=== PATIENT | male | born 1955 | race Caucasian/White ===

== ENCOUNTER 2025-04-17 07:55 | Outpatient (CLI) | payer MEDICARE, OTHER, SELFPAY ==
--- OUTSIDE RECORDS SUMMARY | 2025-03-21 09:00 | XMS_ITS ---
Author Organization [facility] Address [address] [place], [place] [address] Care Team Providers Care Aircraft Engine Mechanic Name Role Phone TERENCE MÁRQUEZ Unavailable [phone] Mallorie Douglas Unavailable Unavailable Allergies No Known Allergies REASON FOR VISIT *Diabetic foot exam, wart, callus Social History Tobacco Use: Social History Observation Description Date Details (start date - stop date) Never Smoker NA - NA Tobacco Control (Standard) Question Answer Notes Tobacco use: Nonsmoker Vital Signs Height 71 in 03/21/2025 Weight 238 lbs 03/21/2025 BMI 33.19 kg/m2 03/21/2025 Height-cm 180.34 cm 03/21/2025 Weight-kg 107.96 kg 03/21/2025 Encounters Encounter Location Date Provider Diagnosis [facility] [address] [place], [place] [id number] 03/21/2025 TERENCE MÁRQUEZ Tinea unguium B35.1 ; [...] area and expose the foreign body. A moss picker was then used to remove it [...] area and expose the foreign body. A moss picker was then used to remove it [...] multiple treatments. Next Appt Details Provider Name:TERENCE CAST SMITA, 06/13/2025 08:20:00 AM, [address], [address], [phone], Progress Notes * Robbie HAMMDOB: [birth year] (70 yo M)Acc No.[id number]:03/21/2025 Progress Notes Patient: Naomie BANKS Robbie Hilton Provider: Lavern MÁRQUEZ :1955 A ge:70 Y S ex:Male Date:03/21/2025 Address:[facility] [address] [facility] Subjective: * Chief Complaints: * 1 . *Diabetic foot exam, wart, callus. * HPI: H PI: New Complaint P [...] warts, calluses and corns. * Medical History: L eg/Feet cramps, Arthritis, Sleep apnea, Back Trouble, Diabetic. * Surgical History: G all Bladder 2009, sinus surgery 2024. * Hospitalization/Major Diagno stic Procedure: D enies Past Hospitalization. * Family History: N o Family History documented.. * Social History: T obacco Use: T obacco Control (Standard) T obacco use: N onsmoker. D rugs/Alcohol: D o you drink alcohol?: Yes, Socially. * Medications: N one * Allergies: N .K.D.A. Objective: * Vitals: S hoe Size: 10, [...] foreign body, left foot, initial encounter - S95.585W (Primary) ?2. T inea unguium - B35.1 [...] that verruca treatments often require multiple treatments. * Billing Information: * Visit Code: 27551 Office Visit, New Pt., Level 3. * Procedure Codes: * Electronic signature of JS IVANAWilliam MÁRQUEZ , DPM on 04/17/2025 at 08:03 AM CDT Sign off status: Pending * Provider: Lavern MÁRQUEZ Date: 0 03/21/2025 Generated for Paulie pang/Viraj/Brendon on: 1 08:03 AM CDT History and Physical Notes * HPI (History [...]
--- OUTSIDE RECORDS SUMMARY | 2025-03-21 09:00 | XMS_ITS ---
Author Organization [facility] Address [address] [place], [place] [address] Care Team Providers Care Manuscript Reader Name Role Phone TERENCE MÁRQUEZ Unavailable [phone] Mallorie Douglas Unavailable Unavailable Allergies No Known [...] Location Date Provider Diagnosis [facility] [place] [address] [place], [place] [id number] 03/21/2025 TERENCE MÁRQUEZ Tinea unguium B35.1 ; [...] area and expose the foreign body. A grape picker was then used to remove it [...] area and expose the foreign body. A grape picker was then used to remove it [...] Appt Details Provider Name:TERENCE Dill SERENE ORDOÑEZ, 04/11/2025 09:30:00 AM, [address], [address], [id number], Progress Notes * Robbie HAMMDOB: [birth year] (70 yo M)Acc No.[id number]:03/21/2025 Progress Notes Patient: Naomie BANKSRobbie Provider: Lavern MÁRQUEZ :1955 A ge:70 Y S ex:Male Date:03/21/2025 Address[address], [facility] Subjective: * Chief Complaints: * [...] foreign body, left foot, initial encounter - S92.206Q (Primary) ?2. T inea unguium - B35.1 [...] treatments. * Billing Information: * Visit Code: 87304 Office Visit, New Pt., Level 3. * Procedure Codes: * Electronic signature of JS MÁRQUEZ , DPM on 04/09/2025 at 07:52 AM CDT Sign off status: Pending * Provider: Lavern MÁRQUEZ Date: 03/21/2025 Generated for Paulie pang/Viraj/Brendon on: 0 04/09/2025 07:52 AM CDT History and Physical Notes * [...]
--- OUTSIDE RECORDS SUMMARY | 2025-04-09 07:52 | XMS_ITS | Patient Health Record ---
Author Organization [facility] Address [address] [place], [place] [address] Care Team Providers Care Painter Structural Steel Name Role Phone TERENCE MÁRQUEZ Unavailable [phone] Mallorie Douglas Unavailable Unavailable Allergies No Known Allergies Reason For Referral No Information Social History Tobacco Use: Social History Observation Description Date Details (start date - stop date) Never Smoker NA - NA Tobacco Control (Standard) Question Answer Notes Tobacco use: Nonsmoker Vital Signs Height-cm 180.34 cm 03/21/2025 Weight-kg 107.96 kg 03/21/2025 Height 71 in 03/21/2025 Weight 238 lbs 03/21/2025 BMI 33.19 kg/m2 03/21/2025 Encounters Encounter Location Date Provider Diagnosis [facility] [place] [address] [place], [place] [phone] 03/21/2025 TERENCE MÁRQUEZ Tinea unguium B35.1 ; [...] area and expose the foreign body. A milk pickup driver was then used to remove it from [...] often require multiple treatments. Plan Of Treatment Next Appt Details Provider Name:TERENCE CAST SMITA, 04/11/2025 09:30:00 AM, [address], [facility] [address], [place], [place], [phone], Insurance Providers Payer Name Payer Address Payer Phone Subscriber Number Group Number Insured Name Patient Relationship to Insured Coverage Start Date Coverage End Date Medicare Part B [facility] [address] [place] [address] [id number] Robbie Medina Self - patient is the insured [employer] [address] [place], [place] [id number] Robbie Medina Self - patient is the insured 1 Medical (General) History Medical History History ICD Code Leg/Feet cramps Arthritis Sleep apnea Back Trouble Diabetic Surgical History Surgery Date(Month/Year) Gall Bladder 2009 sinus surgery 2024
--- OUTSIDE RECORDS SUMMARY | 2025-04-09 07:52 | XMS_ITS | Clinical Summary ---
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 Gender Identity Not on file Sexual Orientation Not on file Plan of Treatment Health Maintenance Due Date Last Done Comments Hepatitis C Virus (HCV) Screening 1955 TdaP Immunization 1955 Cologuard 01/20/2000 Colonoscopy 01/20/2000 Colorectal Cancer Screening 01/20/2000 Immunochemical Fecal Occult Blood 01/20/2000 Zoster Immunization (1 of 2) 2005 SARS-COV-2 Immunization ( season) 2024 11/05/2020, 10/08/2020 Influenza Immunization (#1) 03/12/202505/12, 04/06/2018, 05/17/2017, Additional history exists Respiratory Syncytial Virus (RSV) Immunization (Adult) (1 - 1-dose 75+ series) 2030 DTaP/Tdap/Td Immunization Discontinued 02/22/2020 Pneumococcal Immunization (50+ years) Completed 05/29/2021, 02/22/2020 Hepatitis B Immunization Aged Out No longer eligible based on patient's age to complete this topic Human Papillomavirus (HPV) Immunization Aged Out No longer eligible based on patient's age to complete this topic Meningococcal Immunization (ACWY) Aged Out No longer eligible based on patient's age to complete this topic Rotavirus Immunization Aged Out No lo nger eligible based on patient's age to complete this topic
--- OUTSIDE RECORDS SUMMARY | 2025-04-11 04:30 | XMS_ITS ---
Author Organization [facility] Address [address] [place], [place] [phone] Care Team Providers Care Casing Operator Name Role Phone TERENCE MÁRQUEZ Unavailable [phone] Mallorie Douglas Unavailable Unavailable Allergies No Known Allergies REASON FOR VISIT foot check Vital Signs Height 71 in 04/11/2025 Height-cm 180.34 cm 04/11/2025 Encounters Encounter Location Date Provider Diagnosis [facility] [place] [address] [place], [place] [id number] 04/11/2025 TERENCE MÁRQUEZ Tinea unguium B35.1 ; [...] Reas on: Provider Name:TERENCE Fuentes ORDOÑEZ, 06/13/2025 08:20:00 AM, [address], [address], [phone], Progress Notes * Robbie HAMMDOB: [birth year] (70 yo M)Acc No.[id number]:04/11/2025 Patient: Robbie RHODES Provider: Lavern MÁRQUEZ :1955 A ge:70 Y S ex:Male Date:04/11/2025 [facility] Subjective: * Chief Complaints: * 1 . Foot check. * HPI: H PI: Follow Up Visit [...] all Bladder 2009, sinus surgery 2024. * Family History: N o Family History documented.. * Medications: N one * Allergies: N .K.D.A. Objective: * Vitals: H t: 71 in, [...] past year. * Follow Up: 9 weeks DF * Billing Information: * Visit Code: * Procedure Codes: * Electronic signature of JS MÁRQUEZ DPM on 04/17/2025 at 08:04 AM CDT Sign off status: Pending * Provider: Lavern MÁRQUEZ Date: Generated for Paulie pang/Viraj/Brendon on: 08:04 AM CDT History and Physical Notes * [...]
--- OUTSIDE RECORDS SUMMARY | 2025-04-17 08:03 | XMS_ITS | Encounter Summary ---
Author Organization [facility] System Address [facility] [place] [address] Care Team Providers Care Irish Moss Bleacher Name Role Phone Mallorie Douglas Manjula PERRY Primary Care Provider [phone] Kimberly Butcher MD Unavailable [phone] Pavithra Riggs MICROARRAY ANALYST Unavailable [phone] Narayan Julien DPM Unavailable Encounter Details Date Type Department Care Team (Late st Contact Info) Description 04/29/2023 Application Experts Message Enc [facility] [place], [place] [phone] [facility] Provider request for medical records Social History Tobacco Use Types Packs/Day Years Used Date Smoking Tobacco: Never Passive Smoke Exposure: Never Smokeless Tobacco: Never Alcohol Use Standard Drinks/Week Comments Never 0 (1 standard drink = 0.6 oz pur e alcohol) PHQ-2 Answer Date Recorded Patient Health Questionnaire-2 Score 0 07/15/2022 Education Answer Date Recorded What is the highest level of school you have completed or the highest degree you have received? 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 [address] [place], [place] [phone] documented as of this encounter Visit Diagnoses Not on filedocumented in this encounter Additional Health Concerns Infection Onset Date Last Indicated Resolved Time COVID-19 Rule Out 02/25/2024 02/25/2024 02/25/2024 10:33 AM CDT Assessment Noted Time PHQ-9 Depression Total Score: 0 12/13/19 21 4:06 PM CDT documented as of this encounter Care Teams Irish Moss Bleacher Relationship Specialty Start Date End Date Mallorie Douglas DO [address] [place], [place] [address] PCP - General FAMILY PRACTICE 05/31/17 Kimberly Butcher MD Three [facility]. [address] [place] [address] [place] Saloon Keeper CARDIOVASCULAR DISEASE 07/20/17 Pavithra Riggs NP 3 [facility] [address] [place] [phone] (Work) Nurse Practitioner PAIN MANAGEMENT 11/16/22 Narayan Julien DPM 3 [facility] [address] [place] [address] Referring Physician PODIATRY 11/30/23 [facility] [address] [place] [address] 11/30/23 documented as of this encounter
--- OUTSIDE RECORDS SUMMARY | 2025-04-17 08:03 | XMS_ITS | Encounter Summary ---
Author Organization [facility] System Address [facility] [place] [address] Care Team Providers Care Shuttle Hand Name Role Phone Mallorie Douglas Primary Care Provider Kimberly Butcher MD Unavailable [phone] Pavithra Riggs CLINICAL PRACTICE CONSULTANT Unavailable [phone] Narayan Julien DPM Unavailable Encounter Details Date Type Department Care Team (Late st Contact Info) Description 05/18/2023 Therapy Plan [facility] Physical Therapy [address] [place] [address] Ashley Srinivasan, PT [address] [place], [place] [phone] Social History Tobacco Use Types Packs/Day Years [...] Sex Assigned at Male 08/31/2024 1:17 PM PULPWOOD DEALER Legal Sex Male 5:06 PM CDT Gender Identity Male 08/31/2024 1:17 PM PULPWOOD DEALER Sexual Orientation Straight 08/31/2024 1: 17 PM PULPWOOD DEALER Occupation Industry Job Start Date Job End [...] Description 12/24/2025 12:00 PM CDT Office Visit [facility] THREE [facility], [address] [place], [place] [phone] Kimberly Butcher MD Three [facility]. [address] [place], [place] [phone] documented as of this encounter Visit Diagnoses Not on filedocumented in this encounter Additional Health Concerns Infection Onset Date Last Indicated Resolved Time COVID-19 Rule Out 02/25/2024 02/25/2024 02/25/2024 10:33 AM CDT Assessment Noted Time PHQ-9 Depression Total Score: 0 12/13/19 21 4:06 PM CDT documented as of this encounter Care Teams Shuttle Hand Relationship Specialty Start Date End Date Mallorie Douglas DO [address] [place], [place] [phone] PCP - General FAMILY PRACTICE 05/31/17 Kimberly Butcher MD Three [facility]. [address] [place], [place] [phone] [place] Lorry Weigher CARDIOVASCULAR DISEASE 07/20/17 Pavithra Riggs NP 3 [facility] [address] [place], [place] [phone] (Work) Nurse Practitioner PAIN MANAGEMENT 11/16/22 Narayan Julien DPM 3 [facility] [address] [place] [phone] Referring Physician PODIATRY 11/30/23 [facility] [address] [place] [address] 11/30/23 documented as of this encounter
--- OUTSIDE RECORDS SUMMARY | 2025-04-17 08:03 | XMS_ITS | Encounter Summary ---
Author Organization [facility] Address [address] [place] [address] Care Team Providers Care Carpet Winder Name Role Phone Mallorie Douglas Manjula PERRY Primary Care Provider [phone] Kimberly Butcher MD Unavailable [phone] Pavithra Riggs MANAGER MAC Unavailable [phone] Narayan Julien DPM Unavailable Encounter Details Date Type Department Care Team (Late st Contact Info) Description 08/06/2022 Abstract [facility] BUSINESS OFFICE [facility] [place] [address] Abstract, Doc Med Group Social History Tobacco Use Types Packs/Day Years Used Date Smoking Tobacco: Never Smokeless Tobacco: Never Alcohol Use Standard Drinks/Week Comments No 0 (1 standard drink = 0.6 oz pur e alcohol) PHQ-2 Answer Date Recorded Patient Health Questionnaire-2 Score 0 07/15/2022 Sex and Gender Information Value Date Recorded Sex Assigned at Male 08/31/2024 1:17 PM AUTO BODY ESTIMATOR Legal Sex Male 5:06 PM CDT Gender Identity Male 08/31/2024 1:17 PM AUTO BODY ESTIMATOR Sexual Orientation Straight 08/31/2024 1: 17 PM AUTO BODY ESTIMATOR 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 No / Unsure 07/15/2022 10:47 AM AUTO BODY ESTIMATOR documented as of this encounter Plan of Treatment Upcoming Encounters Date Type Department Care Team (Late st Contact Info) Description 12/24/2025 12:00 PM CDT Office Visit [facility] THREE [facility], [address] [place], [place] [phone] Kimberly Butcher MD [facility]. [facility] [address] [place], [place] [phone] documented as of this encounter Procedures Procedure Name Priority Date/Time Associated Diagnosis Comments GFR Routine 02/25/2022 documented in this encounter Results * GFR (02/25/2022) GFR ESTIMATE 94.6 02/25/2022 us [facility] Abstract LABORATORY Final Res ult documented in this encounter Visit Diagnoses Not on filedocumented in this encounter Additional Health Concerns Infection Onset Date Last Indicated Resolved Time COVID-19 Rule Out 02/25/2024 02/25/2024 02/25/2024 10:33 AM CDT Assessment Noted Time PHQ-9 Depression Total Score: 0 12/13/19 21 4:06 PM CDT documented as of this encounter Care Teams Carpet Winder Relationship Specialty Start Date End Date Mallorie Douglas DO [address] [place], [place] [phone] PCP - General FAMILY PRACTICE 05/31/17 Kimberly Butcher MD Three [facility]. [facility] [address] [place], [place] [phone] Coila Volleyball Player CARDIOVASCULAR DISEASE 07/20/17 Pavithra Riggs NP 3 [facility] [address] [place] [phone] (Work) Nurse Practitioner PAIN MANAGEMENT 11/16/22 Narayan Julien DPM 3 [facility] [address] [place] [address] Referring Physician PODIATRY 11/30/23 [facility] [address] [place] [address] 11/30/23 documented as of this encounter
--- OUTSIDE RECORDS SUMMARY | 2025-04-17 08:03 | XMS_ITS | Clinical Summary ---
Author Organization [facility] Care Team Providers Care Communication Skills Instructor Name Role Phone Unavailable Primary Care Provider Unavailabl e Social History Tobacco Use Types Packs/Day Years Used Date Smoking Tobacco: Never Assessed Sex and Gender Information Value Date Recorded Sex Assigned at Not on file Legal Sex Male 10:13 AM SALON PROFESSIONAL Gender Identity Not on file Sexual Orientation Not on file Plan of Treatment Health Maintenance Due Date Last Done Comments Hepatitis C Virus (HCV) Screening 1955 TdaP Immunization 1955 Cologuard 01/20/2000 Colonoscopy 01/20/2000 Colorectal Cancer Screening 01/20/2000 Immunochemical Fecal Occult Blood 01/20/2000 Zoster Immunization (1 of 2) 2005 Influenza Immunization (#1) 03/12/202505/12, 04/06/2018, 05/17/2017, Additional history exists SARS-COV-2 Immunization ( - 2024- season) 2025 11/05/2020, 10/08/2020 Respiratory Syncytial Virus (RSV) Immunization (Adult) (1 [...]
--- OUTSIDE RECORDS SUMMARY | 2025-04-17 08:03 | XMS_ITS | Encounter Summary ---
Author Organization [facility] System Address [facility] [place] [address] Care Team Providers Care Utility Tech Name Role Phone Mallorie Douglas Primary Care Provider [phone] Kimberly Butcher MD Unavailable [phone] Pavithra Riggs NP Unavailable [phone] Narayan Julien DPM Unavailable Reason for Visit * Reason Onset Date Comments Called To Cancel Office Appt. 10/23/2020 Encounter Details Date Type Department Care Team (Late st Contact Info) Description 10/23/2020 Telephone [facility] Physical Therapy [address] [place] [address] Emma Martinez PT Called To Cancel Office Appt. 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 No / Unsure 10/11/2020 3:03 PM CDT documented as of this encounter Plan of Treatment Upcoming Encounters Date Type Department Care Team (Late st Contact Info) Description 12/24/2025 12:00 PM CDT Office Visit [facility] THREE [facility], [address] [place], [place] [phone] Kimberly Butcher MD Three [facility]. [address] [place], [place] [address] documented as of this encounter Visit Diagnoses Not on filedocumented in this encounter Additional Health Concerns Infection Onset Date Last Indicated Resolved Time COVID-19 Rule Out 02/25/2024 02/25/2024 02/25/2024 10:33 AM CDT documented as of this encounter Care Teams Utility Tech Relationship Specialty Start Date End Date Mallorie Douglas DO [address] [place], [place] [address] PCP - General FAMILY PRACTICE 05/31/17 Kimberly Butcher MD Three [facility]. [address] [place] [address] [place] Cannon Fire Direction Specialist CARDIOVASCULAR DISEASE 07/20/17 Pavithra Riggs NP 3 [facility] [address] [place] [phone] (Work) Nurse Practitioner PAIN MANAGEMENT 11/16/22 Narayan Julien DPM 3 [facility] [address] [place] [address] Referring Physician PODIATRY 11/30/23 [facility] [address] [place] [address] 11/30/23 documented as of this encounter
--- OUTSIDE RECORDS SUMMARY | 2025-04-17 08:03 | XMS_ITS | Encounter Summary ---
Author Organization [facility] System Address [facility] [place] [address] Care Team Providers Care Cathode Ray Tube Assembler Name Role Phone Malloire Douglas Primary Care Provider [phone] Kimberly Butcher MD Unavailable [phone] Pavithra Riggs CARDIAC MONITOR TECHNICIAN Unavailable [phone] Narayan Julien DPM Unavailable Encounter Details Date Type Department Care Team (Latest Contact Info) Description 03/10/2018 Abstract [facility] Medical [facility] , Valdo Mcnally MD Social History Tobacco Use Types Packs/Day Years Used Date Smoking Tobacco: Never Smokeless Tobacco: Never Alcohol Use Standard Drinks/Week Comments No 0 (1 standard drink = 0.6 oz pur e alcohol) Sex and Gender Information Value Date Recorded Sex Assigned at Male 08/31/2024 1:17 PM HOUSEHOLD APPLIANCE MECHANIC Legal Sex Male 5:06 PM CDT Gender Identity Male 08/31/2024 1:17 PM HOUSEHOLD APPLIANCE MECHANIC Sexual Orientation Straight 08/31/2024 1: 17 PM HOUSEHOLD APPLIANCE MECHANIC 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 [address] [place] [address] documented as of this encounter Visit Diagnoses Not on filedocumented in this encounter Additional Health Concerns Infection Onset Date Last Indicated Resolved Time COVID-19 Rule Out 02/25/2024 02/25/2024 02/25/2024 10:33 AM CDT documented as of this encounter Care Teams Cathode Ray Tube Assembler Relationship Specialty Start Date End Date Mallorie Douglas DO [address] [place] [address] PCP - General FAMILY PRACTICE 05/31/17 Kimberly Butcher MD Three [facility]. [facility] [address] [place] [address] [place] Business Support Liaison CARDIOVASCULAR DISEASE 07/20/17 Pavithra Riggs NP 3 [facility] [address] [place] [phone] (Work) Nurse Practitioner PAIN MANAGEMENT 11/16/22 Narayan Julien DPM 3 [facility] [address] [place] [address] Referring Physician PODIATRY 11/30/23 [facility] [address] [place] [address] 11/30/23 documented as of this encounter
--- OUTSIDE RECORDS SUMMARY | 2025-04-17 08:04 | XMS_ITS | Clinical Summary ---
Author Organization [facility] Address [address] [place] [address] Care Team Providers Care Baby Sitter Name Role Phone Mallorie Douglas Primary Care Provider [phone] Kimberly Butcher MD Unavailable [phone] Pavithra Riggs WINDER TENDER Unavailable [phone] Narayan Julien DPM Unavailable Allergies No known active allergies Medications Cholecalciferol (VITAMIN D-3) 5000 units Tab Take 1 tablet (125 mcg total) by mouth daily. Active SUMAtriptan (IMITREX) 20 MG/ACT nasal spray 20 mg by Nasal route as needed. Active vitamin B-12 (CYANOCOBALAMIN) 1000 mcg tablet Take 1 tablet (1,000 mcg total) by mouth daily. Take one by mouth daily 0 Active diclofenac sodium (VOLTAREN) 1 % gel Apply 4 g topically 4 (four) times daily. 3 Active lidocaine (LIDODERM) 5 % Place 1 patch onto the skin. 3 Active metFORMIN (GLUCOPHAGE) 500 MG tabletIndication s:Type 2 diabetes mellitus without complication, without long-term current use of insulin ([facility]) Take 1 tablet (500 mg total) by mouth daily. 180 tablet 4 Active Glucose Blood (ACCU-CHEK ELIO PLUS) test stripIndications :Type 2 diabetes mellitus without complication, without long-term current use of insulin ([facility]) USE TO TEST TWICE DAILY 200 strip 3 4 Active atorvastatin (LIPITOR) 10 MG tabletIndication s:Type 2 diabetes mellitus without complication, without long-term current use of insulin ([facility]) TAKE 1 TABLET(10 MG) BY MOUTH EVERY NIGHT AT BEDTIME 90 tablet 1 4 Active hydroCHLOROthiaz margarita (MICROZIDE) 12.5 MG tabletIndication s:Essential hypertension TAKE 1 TABLET(12.5 MG) BY MOUTH EVERY MORNING 90 tablet 2 5 Active naloxone (NARCAN) 4 MG/0.1ML nasal sprayIndications :Acute bilateral thoracic back pain 1 spray by Nasal route as needed for Opioid reversal. may repeat every 2 to 3 minutes in alternating nostrils until medical assistance becomes available 1 each 5 026 Active fluticasone propionate (FLONASE) 50 MCG/ACT nasal sprayIndications :Non-seasonal allergic rhinitis due to pollen SHAKE LIQUID AND USE 1 SPRAY IN EACH NOSTRIL DAILY 16 g 3 5 Active lisinopril (PRINIVIL) 2.5 MG tabletIndication s:Essential hypertension Take 1 tablet (2.5 mg total) by mouth daily. 90 tablet 3 5 Active SOFTCLIX LANCETS MiscIndications: Type 2 diabetes mellitus without complication, without long-term current use of insulin ([facility]) USE TO CHECK BLOOD SUGAR TWICE DAILY 200 each 2 5 Active semaglutide (OZEMPIC) 1 mg/dose injection (PEN)Indications :Diabetes Mellitus Inject 1 mg into the skin once a week. Indications: Diabetes 9 mL 3 5 Active ipratropium (ATROVENT) 0.06 % nasal sprayIndications :Rhinorrhea USE 2 SPRAYS IN EACH NOSTRIL FOUR TIMES DAILY 15 mL 1 5 Active Blood Glucose Monitoring Suppl (FREESTYLE LITE) DeviceIndication s:Type 2 diabetes mellitus with hypoglycemia without coma, without long-term current use of insulin ([facility]) Check sugars daily and hypoglycemia 1 each 1 5 Active Active Problems Problem Noted Date Diagnosed Date Type 2 diabetes mellitus wit h other specified complication, without long-term current use of insulin ([facility]) 01/25/2025 Dyslipidemia 09/04/2020 Localized edema 09/04/2020 Essential hypertension 09/04/2020 Sebaceous cyst of right axilla 05/10/2018 Cerumen debris on tympanic membrane 01/03/2018 LEIDY on CPAP 12/02/2017 Abnormal ECG 07/28/2017 Precordial pain 07/28/2017 Thoracic spine pain 06/07/2017 T12 vertebral fracture ([facility]) 017 Environmental and seasonal allergies 11/19/2016 Migraine 10/05/2016 Low back pain 03/13/2015 Urinary incontinence 11/30/2013 Vitiligo 11/23/2013 Atypical chest pain PVC (premature ventricular contraction) Class 2 obesity due to exces s calories with body mass index (BMI) of 36.0 to 36.9 in adult Type 2 diabetes mellitus wit h hypoglycemia without coma, without long-term current use of insulin ([facility]) Resolved Problems Problem Noted Date Diagnosed Date Resolved Date Achilles tendinitis 01/03/2018 05/04/20 23 Encounters Date Type Department Care Team Description 03/28/2025 Scan HEALTH INFO SRVCS Scanned, Doc Med Group 03/06/2025 3:40 PM CDT Office Visit [facility] [address], [address] [place] [phone] Mallorie Douglas DO Follow Up (Pt is f/u on a wart) 03/06/2025 Travel 03/01/2025 Scan HEALTH INFO SRVCS Scanned, Doc Med Group 02/19/2025 Scan HEALTH INFO SRVCS Scanned, Doc Med Group Lab (SCAN) 02/12/2025 Therapy Plan [facility] Physical Therapy [address] [facility] [address] [place] [address] Ashley Srinivasan, PT 02/05/2025 Telephone [facility] [address], [address] [place] [address] Mallorie Douglas DO Refill Request 01/25/2025 10:40 AM CDT Office Visit [facility] [place] [address], [address] [place] [address] Mallorie Douglas DO Wart (Pt has a wart on the bottom of his foot) 01/25/2025 Travel from Last 3 Months Immunizations Immunization Administration Dates Next Due Fluzone 6 Months+ Quad (0.5 mL Prefilled Syringe) 03/24/2022,05/29/2021 Fluzone High Dose - >Age 65 (Prefilled Syringe) 03/23/2023 Influenza (FluMist) 04/02/2011 Influenza (Generic) 04/16/2014, 0,05/03/2009,2000 Influenza Adult (Generic) 04/06/2018,12/2016,04/14/2016,2014 MMR (Generic) 07/20/1998 MODERNA COVID-19 (12+) MRNA, LNP-S, PF, 100 MCG/ 0.5 ML DOSE 11/05/2020,10/08/2020 Pneumococcal (Pneumovax 23) 05/29/2021 Pneumococcal (Prevnar 13) 02/22/2020,03/08/2017 Polio Opv (Generic) 09/22/1979 Td (Decavac) 02/22/2020 Tdap (Generic) 03/08/2017,07/22/2009 Typhoid 09/16/1999 Yellow Fever Vaccine 10/26/1992 Zoster (Zostavax) [address]67 Unt/0.65Ml 04/14/2016 Family History Medical History Relation Comments Cancer Mother Complications du e to MRSA leukemia Mother Stroke Paternal Grandfather Stroke Paternal Grandmother Relation Status Comments Father 70's Maternal Grandfather Maternal Grandmother Mother (Age 53) A TRAY SERVICE WORKER Paternal Grandfather (Age 63) Paternal Grandmother (Age 70) Sister Alive Social History Tobacco Use Types Packs/Day Years Used Date Smoking Tobacco: Never Passive Smoke Exposure: Never Smokeless Tobacco: Never Tobacco Cessation:Counseling Given: No Alcohol Use Standard Drinks/Week Comments Never 0 (1 standard drink = 0.6 oz pur e alcohol) AUDIT-C Answer Date Recorded Q1: How often do you have a drink containing alcohol? Never 11/27/2023 Q2: How many drinks containi ng alcohol do you have on a typical day when you are drinking? Patient does not drink Q3: How often do you have si x or more drinks on one occasion? Never 11/27/2023 PHQ-2 Answer Date Recorded Patient Health Questionnaire-2 Score 0 08/31/2024 Education Answer Date Recorded What is the highest level of school you have completed or the highest degree you have received? 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 [employer] Not on file Not on william e Not on file Last Filed Vital Signs Vital Sign Reading Time Taken Comments Blood Pressure 126/82 03/06/2025 3:23 PM CDT Pulse 77 03/06/2025 3:23 PM CDT Temperature 36.8 C (98.2 F) 03/06/2025 3:23 PM CDT Respiratory Rate 18 03/06/2025 3:23 PM CDT Oxygen Saturation 97% 03/06/2025 3:23 PM CDT Inhaled Oxygen Concentration - - Weight 111.1 kg (245 lb) 03/06/2025 3:23 PM CDT Height 180.3 cm (5' 11) 12/18/2024 9:17 AM CDT Body Mass Index 34.17 12/18/2024 9:17 AM CDT Plan of Treatment Upcoming Encounters Date Type Department Care Team (Late st Contact Info) Description 12/24/2025 12:00 PM CDT [facility] Visit [facility] [address] [place] [address] Kimberly Butcher MD Three [facility]. [address]HI [address] [place] [address] Health Maintenance Due Date Last Done Comments Kidney Health Evaluation 1955 Zoster Vaccines (2 of 3) 06/09/2016 04/14/2016 Hemoglobin A1C 08/11/2024 02/09/2024, 02/09, 02/26/2023, Additional history exists Diabetes: Retinopathy Eye Exam 09/14/2024 09/14/2022, 11/19/2021, 03/24/2018 Annual Medicare Wellness Visit 11/30/2024 11/30/2023 Lipid Panel 02/08/2025 02/09/2024, 02/09, 02/25/2022, Additional history exists COVID-19 Vaccine ( season) 2025 11/05/2020, 10/08/2020 Influenza Adult (#1) 2025 03/23/2023, 03/24/2022, 05/29/2021, Additional history exists Colorectal Cancer Screening Colonoscopy (10 Years) 09/25/2029 09/26/2019, 07/12/2009, 07/12/2009 RSV Immunization or 60+ Years (1 - 1-dose 75+ series) 2030 DTaP, Tdap and Td Vaccines (4 - Td or Tdap) 02/21/2030 02/22/2020, 03/08/2017, 07/22/2009 Hepatitis C Completed 05/29/2021 Pneumococcal Vaccine: 50+ Years Completed 05/29/2021, 02/22/2020, 03/08/2017 PHQ-2 (Physician Polk) Completed 08/31/2024 Meningococcal B Vaccine Aged Out No l onger eligible based on patient's age to complete this topic Meningococcal Vaccine Aged Out No doni bharat eligible based on patient's age to complete this topic RSV Immunizations Under 20 Months Aged Out No longer eligible based on patient's age to complete this topic Procedures Procedure Name Priority Date/Time Associated Diagnosis Comments OUTSIDE LAB (SCAN ORDER) 02/19/2025 OUTSIDE LAB (SCAN ORDER) 02/19/2025 LIPID PANEL Routine 02/09/2024 9:27 AM CDT Type 2 diabetes mellitus with hypoglycemia without coma, without long-term current use of insulin HEMOGLOBIN, GLYCOSYLATED Routine 02/09/2024 9:27 AM CDT Type 2 diabetes mellitus with hypoglycemia without coma, without long-term current use of insulin DIABETIC RETINOPATHY EXAM (NEGATIVE)(SCAN ORDER) Routine 09/14/2022 HEPATITIS C ANTIBODY Routine 05/29/2021 9:13 AM HELP DESK MANAGER Need for hepatitis C screening test COLONOSCOPY GENERIC (SCAN ORDER) Routine 09/26/2019 12:00 AM CDT from Last 3 Months or Most Recently Relevant to Health Maintenance Results * OUTSIDE LAB (SCAN ORDER) (02/19/2025) Only the most recent of2 resultswithin the time period is included. 02/19/2025 us Doc Med Group Scanned SCANNING Final Resu lt * HEMOGLOBIN, GLYCOSYLATED (02/09/2024 9:27 AM CDT) HGB A1C 4.9 <5.7 % 02/09/2024 10:56 AM CDT [facility] Comment: ADA GUIDELINES 2010 5.7 TO 6.4% INCREASED RISK OF DIABETES > OR = 6.5% CONSISTENT WITH DIABETES ESTIMATED AVG GLUCOSE 94 mg/dL 02/09/2024 10:56 AM CDT [facility] 02/09/2024 9:27 AM CDT Mallorie Douglas DO LABORATORY Final Result [facility] [address] [place] [address], [place] [phone] * LIPID PANEL (02/09/2024 9:27 AM CDT) CHOLESTEROL 153 <200 MG/DL 02/09/2024 10:18 AM CDT [facility] TRIGLYCERIDES 75 <150 MG/DL 02/09/2024 10:18 AM CDT [facility] HDL 53 >40.0 MG/DL 02/09/2024 10:18 AM CDT [facility] LDL (CALCULATED) 85 <100 MG/DL 02/09/20 10:18 AM CDT [facility] NON HDL CHOLESTEROL 100 <130 MG/DL 02/08 10:18 AM CDT [facility] CHOL/HDL RATIO 2.9 0.0 - 4.5 02/09/2024 10:18 AM CDT [facility] VLDL CALCULATION 15 5 - 55 MG/DL 02/09/2024 10:18 AM T [facility] LIPID INTERPRETATION 02/09/2024 10:18 AM T [facility] Comment: NIH CONCENSUS REPORT RECOMMENDATIONS: ADULT CHILD LOW RISK: CHOLESTEROL <200 <170 TRIGLYCERIDE <150 --- HDL >=60 --- LDL <100 <110 BORDERLINE: CHOLESTEROL 200-239 170-199 TRIGLYCERIDE 150-199 --- HDL 40-59 --- LDL 100-159 110-129 HIGH RISK: CHOLESTEROL >=240 >=200 TRIGLYCERIDE >=200 --- HDL <40 --- LDL >=160 >=130 02/09/2024 9:27 AM CDT Mallorie Douglas DO LABORATORY Final Result Performing Organization Address [facility]/ZIP Co de Phone Number [facility] [address] [place] [address], [place] [phone] * DIABETIC RETINOPATHY EXAM (NEGATIVE)(SCAN) (09/14/2022) [facility] Scanned SCANNING Final Resu lt Performing Organization Address City/[facility]/ZIP Co de Phone Number [facility] * HEPATITIS C ANTIBODY (05/29/2021 9:13 AM HELP DESK MANAGER) HEPATITIS C AB NON-REACTI VE NON-REACTI VE 05/29/2021 10:44 AM HELP DESK MANAGER [facility] 05/29/2021 9:13 AM HELP DESK MANAGER Mallorie Douglas DO LABORATORY Final Result [facility] [address] [place] [address], * COLONOSCOPY (09/26/2019 12:00 AM CDT) 09/26/2019 us Documents Scanned SCANNING Final Result [facility] from Last 3 Months or Most Recently Relevant to Health Maintenance Insurance MEDICARE [facility] [id number] Care Teams Baby Sitter Relationship Specialty Start Date End Date Mallorie Douglas DO [address] [place] [address] PCP - General FAMILY PRACTICE 05/31/17 Kimberly Butcher MD Three [facility]. [address] [place] [address] [place] Aligner Typewriter CARDIOVASCULAR DISEASE 07/20/17 Pavithra Riggs NP 3 [facility] [address] [place] [phone] (Work) Nurse Practitioner PAIN MANAGEMENT 11/16/22 Narayan Julien DPM 3 [facility] [address] [place] [address] Referring Physician PODIATRY 11/30/23 [facility] [address] [place] [address] 11/30/23
--- OUTSIDE RECORDS SUMMARY | 2025-04-17 08:04 | XMS_ITS | Encounter Summary ---
Author Organization [facility] Address [facility] [place] [address] Care Team Providers Care Group Insurance Specialist Name Role Phone Mallorie Douglas Primary Care Provider Kimberly Butcher MD Unavailable [phone] Pavithra Riggs SPUD SORTER Unavailable [phone] Narayan Julien DPM Unavailable Encounter Details Date Type Department Care Team (Late st Contact Info) Description 12/04/2022 Therapy Plan [facility] Therapy [address] [place] [address] Ashley Srinivasan, PT [address] [place], [place] [phone] Social History Tobacco Use Types Packs/Day Years [...] Sex Assigned at Male 08/31/2024 1:17 PM LITHOGRAPHING MACHINE OPERATOR Legal Sex Male 5:06 PM CDT Gender Identity Male 08/31/2024 1:17 PM LITHOGRAPHING MACHINE OPERATOR Sexual Orientation Straight 08/31/2024 1: 17 PM LITHOGRAPHING MACHINE OPERATOR Occupation Industry Job Start Date Job End [...] suspected to have Coronavirus/COVID-19? No / Unsure 11/17/2022 8:27 AM CDT documented as of this encounter Plan of Treatment Upcoming Encounters Date Type Department Care Team (Late st Contact Info) Description 12/24/2025 12:00 PM CDT Office Visit [facility] THREE [facility], [address] [place], [place] [phone] Kimberly Butcher MD [facility]. [address] [place], [place] [phone] documented as of this encounter Visit Diagnoses Not on filedocumented in this encounter Additional Health Concerns Infection Onset Date Last Indicated Resolved Time COVID-19 Rule Out 02/25/2024 02/25/2024 02/25/2024 10:33 AM CDT Assessment Noted Time PHQ-9 Depression Total Score: 0 12/13/19 21 4:06 PM CDT documented as of this encounter Care Teams Group Insurance Specialist Relationship Specialty Start Date End Date Mallorie Douglas DO [address] [place], [place] [address] PCP - General FAMILY PRACTICE 05/31/17 Kimberly Butcher MD [facility]. [address] [place], [place] [phone] [place] [employer]er CARDIOVASCULAR DISEASE 07/20/17 Pavithra Riggs NP 3 [facility] [address] [place] [phone] (Work) Nurse Practitioner PAIN MANAGEMENT 11/16/22 Narayan Julien DPM 3 [facility] [address] [place] [address] Referring Physician PODIATRY 11/30/23 [facility] [address] [place] [address] 11/30/23 documented as of this encounter
--- OUTSIDE RECORDS SUMMARY | 2025-04-17 08:04 | XMS_ITS | Encounter Summary ---
Author Organization [facility] Address [facility] [place] [address] Care Team Providers Care Bar Pointer Name Role Phone Mallorie Douglas Manjula PERRY Primary Care Provider [phone] Kimberly Butcher MD Unavailable [phone] Pavithra Riggs NP Unavailable [phone] Narayan Julien DPM Unavailable Encounter Details Date Type Department Care Team (Late st Contact Info) Description 03/25/2023 Abstract [facility] [phone] Meng Santoro MA Social History Tobacco Use Types Packs/Day Years [...] Sex Assigned at Male 08/31/2024 1:17 PM CONDITIONER TENDER Legal Sex Male 5:06 PM CDT Gender Identity Male 08/31/2024 1:17 PM CONDITIONER TENDER Sexual Orientation Straight 08/31/2024 1: 17 PM CONDITIONER TENDER Occupation Industry Job Start Date Job End [...] CDT Office Visit [facility] [address] [facility] [address], [address] [place], [place] [phone] Kimberly Butcher MD [facility] [address] [place], [place] [phone] documented as of this encounter Procedures Procedure Name Priority Date/Time Associated Diagnosis Comments HEMOGLOBIN, GLYCOSYLATED Routine 02/26/2023 COMPREHENSIVE METABOLIC PANEL Routine 02/26/2023 LIPID PANEL Routine 02/26/2023 CBC, MANUAL DIFF Routine 02/26/2023 THYROID STIM HORMONE TSH Routine 02/26/2023 VITAMIN D, 25 OH Routine 02/26/2023 documented in this encounter Results * VITAMIN D, 25 OH (02/26/2023) Pathologist [facility] VITAMIN D 25 HYDROXY S/P/B 59.8 02/26/2023 us Default History Genericprovider LABORATORY Final Result * COMPREHENSIVE METABOLIC PANEL (02/26/2023) SODIUM S/P/B 140 GLUCOSE 102 mg/dL AST 19 BUN 14 CREATININE S/P/B 0.96 0.7 - 1.3 CALCIUM S/P/B 9.3 POTASSIUM S/P/B 4.4 CHLORIDE S/P/B 105 ALT 29 GFR ESTIMATE 86.1 Narrative Resulting Agency Comment us Default History Genericprovider LABORATORY Edited Result - Final * LIPID PANEL (02/26/2023) CHOLESTEROL 143 TRIGLYCERIDES 66 HDL 52 LDL (CALCULATED) 78 Narrative Resulting Agency Comment us Default History Genericprovider LABORATORY Final Result * CBC, MANUAL DIFF (02/26/2023) WBC 5.8 HGB 15.6 HCT 47.9 PLT 165 Narrative Resulting Agency Comment us Default History Genericprovider LABORATORY Edited Result - Final * HEMOGLOBIN, GLYCOSYLATED (02/26/2023) HGB A1C 5.9 % Narrative Resulting Agency Comment us Default History Genericprovider LABORATORY Final Result * THYROID STIM HORMONE, TSH (02/26/2023) TSH 0.763 Narrative Resulting Agency Comment us Default History Genericprovider LABORATORY Final Result documented in this encounter Visit Diagnoses Not on filedocumented in this encounter Additional Health Concerns Infection Onset Date Last Indicated Resolved Time COVID-19 Rule Out 02/25/2024 02/25/2024 02/25/2024 10:33 AM CDT Assessment Noted Time PHQ-9 Depression Total Score: 0 12/13/19 21 4:06 PM CDT documented as of this encounter Care Teams Bar Pointer Relationship Specialty Start Date End Date Mallorie Douglas DO [address] [place] [address] PCP - General FAMILY PRACTICE 05/31/17 Kimberly Butcher MD Three [facility]. [address] [place], [place] [phone] [place] [facility] Director CARDIOVASCULAR DISEASE 07/20/17 Pavithra Riggs NP 3 [facility] [address] [place] [phone] [phone] (Work) Nurse Practitioner PAIN MANAGEMENT 11/16/22 Narayan Julien DPM 3 [facility] [address] [place] [address] Referring Physician PODIATRY 11/30/23 [facility] [address] [place] [address] 11/30/23 documented as of this encounter
--- OUTSIDE RECORDS SUMMARY | 2025-04-17 08:04 | XMS_ITS | Encounter Summary ---
Author Organization [facility] Address [facility] [place] [address] Care Team Providers Care Crate Icer Name Role Phone Mallorie Douglas Primary Care Provider Kimberly Butcher MD Unavailable [phone] Pavithra Riggs PLYWOOD SCARFER TENDER Unavailable [phone] Narayan Julien DPM Unavailable Encounter Details Date Type Department Care Team (Late st Contact Info) Description 02/12/2025 Therapy Plan [facility] Physical Therapy 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 [address] [place], [place] [phone] documented as of this encounter Visit Diagnoses Not on filedocumented in this encounter Additional Health Concerns Assessment Noted Time PHQ-9 Depression Total Score: 0 11/27/19 24 3:46 PM CDT documented as of this encounter Care Teams Crate Icer Relationship Specialty Start Date End Date Mallorie Douglas DO [address] [place], [place] [phone] PCP - General FAMILY PRACTICE 05/31/17 Kimberly Butcher MD Three [facility]. [address] [place], [place] [phone] [employer]zone Supervisor [employer]ation CARDIOVASCULAR DISEASE 07/20/17 Pavithra Riggs NP 3 [facility] [address] [place] [phone] (Work) Nurse Practitioner PAIN MANAGEMENT 11/16/22 Narayan Julien DPM 3 [facility] [address] [place] [address] Referring Physician PODIATRY 11/30/23 [facility] [address] [place] [address] 11/30/23 documented as of this encounter
--- OUTSIDE RECORDS SUMMARY | 2025-04-17 08:05 | XMS_ITS | Patient Health Record ---
Author Organization [facility] Address [address] [place], [place] [id number] Care Team Providers Care Retail Shift Manager Name Role Phone TERENCE MÁRQUEZ Unavailable [phone] Mallorie Douglas Unavailable Unavailable Allergies No Known Allergies Reason For Referral No Information Social History Tobacco Use: Social History Observation Description Date Details (start date - stop date) Never Smoker NA - NA Tobacco Control (Standard) Question Answer Notes Tobacco use: Nonsmoker Vital Signs Height-cm 180.34 cm 04/11/2025 Weight-kg 107.96 kg 03/21/2025 Height 71 in 04/11/2025 Weight 238 lbs 03/21/2025 BMI 33.19 kg/m2 03/21/2025 Encounters Encounter Location Date Provider Diagnosis [facility] [address] [place] [id number] 03/21/2025 TERENCE MÁRQUEZ Tinea unguium B35.1 ; Superficial foreign body, left foot, initial encounter S90.852A ; Acquired keratosis [keratoderma] palmaris et plantaris L85.1 ; Type 2 diabetes mellitus with other circulatory complications E11.59 ; Pain in right foot M79.671 and Pain in left foot M79.672 [facility] [address] [place] [id number] 04/11/2025 TERENCE MÁRQUEZ Tinea unguium B35.1 ; [...] area and expose the foreign body. A picked edge sewing machine operator was then used to remove it from the foot in its entirety. Neosporin was then applied. 04/11/2025 Tinea unguium (ICD-10 - B35.1) Aseptic [...] debrided down to healthy appearing skin. 03/21/2025 Acquired keratosis [keratoderma] palmaris et plantaris [...] are selected based upon wound characteristics. 04/11/2025 Type 2 diabetes mellitus with other [...] foot (ICD-10 - M79.671) 03/21/2025 Pain in right foot (ICD-10 - M79.671) 03/21/2025 Pain in left foot (ICD-10 - M79.672) 04/11/2025 Pain in left foot (ICD-10 - [...] Of Treatment Next Appt Details Provider Name:TERENCE Dill SERENE ORDOÑEZ, 06/13/2025 08:20:00 AM, [address], [facility], [place], [place], [id number], Insurance Providers Payer Name Payer Address Payer Phone Subscriber Number Group Number Insured Name Patient Relationship to Insured Coverage Start Date Coverage End Date Medicare Part B [facility] [address] [place] [address] [id number] Robbie Medina Self - patient is the insured [employer] [address] [place], [place] [phone] [id number] Robbie Medina Self - patient is the insured Medical (General) History Medical History History ICD Code Leg/Feet cramps Arthritis Sleep apnea Back Trouble Diabetic Surgical History Surgery Date(Month/Year) Gall Bladder 2009 sinus surgery 2024
--- NOTE | 2025-05-10 08:48 | P.SLEEP_ITS ---
Sleep Study Date of Study: 04/17/25 Ordering Provider: Bhavesh Mullins, BASS MECHANISM MAKER Interpreting Physician: Marlene Gooden, DO Sleep Study Type: Polysomnogram Height: 1.8 m Weight: 107.955 kg Body Mass Index: 33.2 Neck Circumference (inches): 17.5 [place]: 2 Reason for Sleep Study Previously diagnosed sleep apnea in 2001. Has been using CPAP since. Sleep History The patient is a 70-year-old male that had a sleep study ordered by his ENT for evaluation of sleep apnea. The patient rarely awakens from sleep short of breath. He rarely awakens at night with heartburn, belching or cough. He frequently snores and is occasionally loud enough that others complain. He constantly has trouble sleeping when he has a cold. He rarely wakes up gasping for air throughout the night. He constantly has breathing problems at night observed by himself or others. He occasionally sweats excessively at night. He denies having heart palpitations or irregular heartbeats during the night. He occasionally falls asleep during the day but never while driving. He denies sleep paralysis and cataplexy. He denies having trouble at school or work due to sleepiness. He frequently experiences vivid dreamlike scenes upon awakening falling asleep. He denies feeling afraid of going to sleep. He denies having nightmares. He frequently remembers his dreams. He constantly has thoughts racing through his mind. He rarely feels sad or depressed. He denies having anxiety. He denies having muscular tension. He occasionally notices parts of his body jerk. He occasionally kicks during the night. He denies having crawling and aching feelings in his legs but occasionally has leg pain during the night. He rarely grinds his teeth during sleep and never awakens with morning jaw pain. He is constantly bothered by pain during the day and occasionally awakened by pain during the night. He rarely wakes up feeling stiff in the morning. He denies waking with sore or achy muscles. He frequently wakes up with pain in the neck, spine and other joints. He goes to bed between 10:00 p.m. to midnight every night. He is able to fall asleep within 10-15 minutes. He wakes up throughout the night to adjust his position and is able to fall back asleep within a few minutes. He wakes up at 7:30 a.m. every morning. He typically gets 7-10 hours of sleep per night. He will stay in bed for evaluated below amount of time after waking up in the morning. He currently lives with his . He denies consuming any caffeinated beverages within 2 hours of bedtime. He denies engaging in physical exercise before bedtime. He will read before falling asleep. He denies watching television before asleep. He denies taking naps in afternoon or the evening. He does consume caffeinated Coca-Cola throughout the day. He denies tobacco, alcohol and recreational drug use. Sleep Procedure A full night polysomnogram using the [employer] multi-channel system recorded the standard physiologic parameters including EEG, EOG, submentalis EMG, anterior tibialis EMG, EKG, body position, nasal and oral airflow using nasal pressure sensor and thermistor.? Respiratory parameters of chest and abdominal movements were recorded with Respiratory Inductance Plethysmography belts. Oxygen saturation was recorded by pulse oximetry. Video monitoring was also performed. Sleep stages, periodic limb movements, and EEG arousals were scored in 30 second epochs according to the criteria of the AASM Scoring Manual. The Apnea-Hypopnea Index was calculated using CMS guidelines for definition of hypopnea with 4% O2 desaturations while scoring respiratory events. Sleep Architecture The total recording time was 527.3 minutes.? The total sleep time was 129.5 minutes. Sleep latency was 32.3 minutes. REM sleep was not achieved during this study. Sleep efficiency was 24.6%. The patient had 98 awakenings for an awakening index of 45.4. Wake after sleep onset time was 365.0 minutes. The patient spent 79.0 minutes, 61.0% of total sleep time in Stage N1. The patient spent 50.5 minutes, 39.0% in Stage N2. The patient spent 0.0 minutes, 0.0% in Stage N3. The patient spent 0.0 minutes, 0.0% in Stage REM sleep. Respiratory Analysis The patient had 7 obstructive apneas, 34 mixed apneas, and 95 central apneas for an overall Apnea Hypopnea Index of 63.0. The REM Apnea Hypopnea Index was 0. The NREM Apnea Hypopnea Index was 63.0. The patient had a Central Apnea Hypopnea Index of 44.0. Jose-Anderson Respirations were present. The patient had a cycle length of 62.4 and a circulation time of 32.6 seconds. Arousals There were 160 total arousals for an arousal index of 74.1. There were 72 spontaneous arousals for an index of 33.4. There were 88 arousals due to respiratory events for an index of 40.8. There were 0 arousals due to periodic limb movements for an index of 0.? There were 0 arousals due to isolated limb movements for an index of 0. Periodic Limb Movements The patient had 2 isolated limb movements with an index of 0.9. The patient had 0 periodic limb movements with an index of 0. Patient had a total of 2 limb movements with a total limb movement index of 0.9. Oximetry Data The patient had an average oxygen saturation of 92.8% in sleep with a minimum oxygen saturation of 81.0% and a maximum oxygen saturation of 98.0%. The patient had 103 oxygen desaturations that were 4% or greater resulting in an Oxygen Desaturation Index of 47.7.? The patient spent 22.8 minutes, 4.5% of total sleep time with an oxygen saturation below 88%. Snoring Profile Snoring was not present throughout the study. Cardiac Profile The EKG showed normal sinus rhythm with rare PVCs. The patient had an average pulse rate of 64.4 bpm with a minimum pulse of rate of 55.0 bpm and a maximum pulse rate of 94.0 bpm.? EEG Profile No signs of seizure activity seen. 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 He had a central apnea index of 44.0. This is consistent with severe central sleep apnea. Jose Anderson respirations were present throughout the study. I recommend that the patient have a CPAP Titration study with the use of a hypnotic to ensure we obtain enough sleep data and find an optimal pressure setting. The patient needs to have an echocardiogram done to rule out cardiogenic causes for central sleep apnea and Jose Anderson respirations. Data The data obtained during this sleep study is adequate for interpretation. Certification This sleep study has been reviewed by a board certified sleep medicine physician.
[2025-05-17 11:16] VITALS: BMI 33.2
== END 2025-04-18 06:36 | disposition home or self-care (01) ==
LOC: ANHCSM 07:56
PROVIDERS: PCP Family Medicine; Visit Provider Nurse Practitioner Family
DX: G47.30 Sleep apnea, unspecified (principal)
CPT/HCPCS: 95810

== ENCOUNTER 2025-05-23 11:04 | Outpatient (CLI) | payer MEDICARE, OTHER, SELFPAY ==
--- OUTSIDE RECORDS SUMMARY | 2025-03-21 08:00 | XMS_ITS ---
Author Organization [facility] Address [address] [place], [place] [address] Care Team Providers Care Manufacturing Accountant Name Role Phone TERENCE MÁRQUEZ Unavailable [phone] Mallorie Douglas Unavailable Unavailable Allergies No Known Allergies REASON FOR VISIT *Diabetic foot exam, wart, callus Social History Tobacco Use: Social History Observation Description Date Details (start date - stop date) Never Smoker NA - NA Social History Tobacco Use: Social Info Question Answer Notes Tobacco Control (Standard) Tobacco use: Nonsmoker Additional Details Category Social Info Options Details Drugs/Alcohol: Do you drink alcohol? Yes, Socially Vital Signs Height 71 in 03/21/2025 Weight 238 lbs 03/21/2025 BMI 33.19 kg/m2 03/21/2025 Height-cm 180.34 cm 03/21/2025 Weight-kg 107.96 kg 03/21/2025 Encounters Encounter Location Date Provider Diagnosis [facility] [place] [address] [place], [place] [id number] 03/21/2025 TERENCE MÁRQUEZ Tinea unguium B35.1 ; Superficial foreign body, left foot, initial encounter S90.852A ; Acquired keratosis [keratoderma] palmaris et plantaris L85.1 ; Type 2 diabetes mellitus with other circulatory complications E11.59 ; Pain in right foot M79.671 and Pain in left foot M79.672 Assessments Encounter Date Diagnosis (ICD Code) Assessment Notes Treatment Notes Treatment Clinical Notes Section Notes 03/21/2025 Tinea unguium (ICD-10 - B35.1) Aseptic debridement of elongated thickened nails x 10 using sterile nippers, nails were debrided in length and thickness by 30% utilizing a nail nipper without incident. The patient was educated regarding all treatment options that include topical and oral antifungal treatments. I discussed the options of taking a sample of the nail to confirm diagnosis. Nail clippings were not sent for pathology analysis. The patient was educated why and how the fungal infection evolved in their feet and the patient was given information regarding how to prevent further infection. The patient was told to keep feet dry and change socks. The patient was told to be careful with old shoes and excessive sweating. The patient was educated regarding both OTC and prescription treatments. 03/21/2025 Superficial foreign body, left foot, initial encounter (ICD-10 - S90.852A) Foreign Body Removal: There is evidence of a foreign body, likely chronic, noted to the left foot. The skin was prepped with alcohol and ethyl chloride spray. A #15 blade was used to trim back the callused skin from the area and expose the foreign body. A hop picker was then used to remove it from the foot in its entirety. Neosporin was then applied. 03/21/2025 Acquired keratosis [keratoderma] palmaris et plantaris (ICD-10 - L85.1) Hyperkeratosis x 2: The skin was prepped with isopropyl alcohol. Using a 15-blade scalpel, the hyperkeratotic skin lesions were sharply debrided down to healthy appearing skin. 03/21/2025 Type 2 diabetes mellitus with other circulatory complications (ICD-10 - E11.59) The lifetime risk of a foot ulcer for patients with diabetes (type 1 or 2) may be as high as 25 percent. Diabetic foot ulcers are a major cause of morbidity and mortality, accounting for approximately two-thirds of all nontraumatic amputations performed in the [place]. This observation illustrates the importance of prompt treatment of foot ulcers in patients with diabetes. The treatment of diabetic foot ulcers begins with a comprehensive assessment of the ulcer and the patient's overall medical condition. Evidence of underlying neuropathy, bony deformity, and peripheral artery disease should be actively sought. Adequate debridement, proper local wound care, relief of pressure on the ulcer by mechanical off-loading, and control of infection (when present) are important components of therapy. Dressings are selected based upon wound characteristics. 03/21/2025 Pain in right foot (ICD-10 - M79.671) 03/21/2025 Pain in left foot (ICD-10 - M79.672) 03/21/2025 Other Patient educated on risks and aggravating factors of PVD, including conservative treatment options such as a diet and exercise regimen to aid in slowing progression of vascular disease. Check and protect LE bilateral daily. Call if any changes or concerns. Verruca Plantaris: I educated the patient on verruca. I discussed various treatment plans and answered questions. I explained that verruca treatments often require multiple treatments. Plan Of Treatment Treatment Notes Assessment Notes Tinea unguium Aseptic debridement of elongated thickened nails x 10 using sterile nippers, nails were debrided in length and thickness by 30% utilizing a nail nipper without incident. The patient was educated regarding all treatment options that include topical and oral antifungal treatments. I discussed the options of taking a sample of the nail to confirm diagnosis. Nail clippings were not sent for pathology analysis. The patient was educated why and how the fungal infection evolved in their feet and the patient was given information regarding how to prevent further infection. The patient was told to keep feet dry and change socks. The patient was told to be careful with old shoes and excessive sweating. The patient was educated regarding both OTC and prescription treatments. Superficial foreign body, le ft foot, initial encounter Foreign Body Removal: There is evidence of a foreign body, likely chronic, noted to the left foot. The skin was prepped with alcohol and ethyl chloride spray. A #15 blade was used to trim back the callused skin from the area and expose the foreign body. A hop picker was then used to remove it from the foot in its entirety. Neosporin was then applied. Acquired keratosis [keratode rma] palmaris et plantaris Hyperkeratosis x 2: The skin was prepped with isopropyl alcohol. Using a 15-blade scalpel, the hyperkeratotic skin lesions were sharply debrided down to healthy appearing skin. Type 2 diabetes mellitus wit h other circulatory complications The lifetime risk of a foot ulcer for patients with diabetes (type 1 or 2) may be as high as 25 percent. Diabetic foot ulcers are a major cause of morbidity and mortality, accounting for approximately two-thirds of all nontraumatic amputations performed in the [place]. This observation illustrates the importance of prompt treatment of foot ulcers in patients with diabetes. The treatment of diabetic foot ulcers begins with a comprehensive assessment of the ulcer and the patient's overall medical condition. Evidence of underlying neuropathy, bony deformity, and peripheral artery disease should be actively sought. Adequate debridement, proper local wound care, relief of pressure on the ulcer by mechanical off-loading, and control of infection (when present) are important components of therapy. Dressings are selected based upon wound characteristics. Other Patient educated on risks and aggravating factors of PVD, including conservative treatment options such as a diet and exercise regimen to aid in slowing progression of vascular disease. Check and protect LE bilateral daily. Call if any changes or concerns. Verruca Plantaris: I educated the patient on verruca. I discussed various treatment plans and answered questions. I explained that verruca treatments often require multiple treatments. Next Appt Details Provider Name:TERENCE Dill SERENE ORDOÑEZ, 06/13/2025 10:20:00 AM, [address] [facility], [place], [place], [id number], History and Physical Notes * HPI (History of Present Illness) Category Sub-Category Detail Notes Category Not es HPI New Complaint Patient presents for a new patient consultation., Patient complains of an issue to warts on both feet., Duration of problem is 1 week. Patient denies any injury., MA: OM Examination Category Sub-Category Detail Notes Category Not es Constitutional Constitutional The patient is a wake, alert, well developed, well groomed and well nourished. Dermatologic Skin findings: bilateral, Skin is thin, atrophic and lacking pedal hair. Nail pathology: Nails 1-5 bilateral are elongated, thick, discolored, and dystrophic with subungual debris. They are painful to palpation Hyperkeratotic Skin Lesion There is evid ence of hyperkeratotic skin lesions present on the right plantar aspect of the 5th mtpj There is a scar from previous wart left heel There is a lesion plantar lateral midfoot on left foot hurts when standing and with pressure. There is no history of drainage or bleeding. Cleansed and sprayed cold spray while removing a small sliver of wood with mild sanguineous drainage. After which the patient voiced relief from palpation pain. Musculoskeletal Muscle Strength Muscle strength is 5/5 in regards to dorsiflexion, plantarflexion, inversion, and eversion in bilateral lower extremities. Foot Structure The foot structure i s noted to be, planus, bilaterally Neurologic Mulders sign: bilateral, negative Gross sensation Gross sensation is i ntact to light touch. Vascular Dorsalis pedis pulse: bilateral, 2/4 Posterior tibial pulse: bilaterally, 2/4 Progress Notes * Robbie HAMM JDOB: [birth year] (70 yo M)Acc No.[id number]:03/21/2025 Progress Notes Patient: Robbie Roque Provider: Lavern MÁRQUEZ :1955 A ge:70 Y S ex:Male Date:03/21/2025 Address:[facility] [address] [place], [id number] Subjective: * Chief Complaints: * * Diabetic foot exam, wart, callus * HPI: H PI: New Complaint P atient presents for a new patient consultation., Patient complains of an issue to warts on both feet., Duration of problem is 1 week. Patient denies any injury., MA: OM. * ROS: G eneral / Constitutional: Patient denies f atigue, fever, chills. P atient complains of p ain. M usculoskeletal: Patient denies a nkle sprain. P atient complains of?joint stiffness. P eripheral Vascular: Patient denies u lceration of feet. S kin: Patient complains of n ail changes, discoloration, warts, calluses and corns. * Medical History: Leg/Feet cramps Arthritis Sleep apnea Back Trouble Diabetic Medical History Verified * Surgical History: Gall Bladder 2010 sinus surgery 2024 Surgical History verified. * Hospitalization/Major Diagno stic Procedure: Denies Past Hospitalization. Hospitalization Verified. * Family History: N o Family History documented.. F amily History Verified.. * Social History: T obacco Use: T obacco Control (Standard) T obacco use: N onsmoker. D rugs/Alcohol: D o you drink alcohol?: Yes, Socially. Social History Verified. * Medications: N one * Allergies: N .K.D.A.yesAllergies Verified. Objective: * Vitals: S hoe Size: 10, Wt:238lbs, Wt-k.96 kg, Ht: 71 in, Ht-cm: 180.34 cm, BMI:33.19Index, Body Surface Area: 2.32. * Examination: C onstitutional: Constitutional T he patient is awake, alert, well developed, well groomed and well nourished.. D ermatologic: Skin findings: b ilateral, Skin is thin, atrophic and lacking pedal hair.. Nail pathology: N ails 1-5 bilateral are elongated, thick, discolored, and dystrophic with subungual debris. They are painful to palpation. Hyperkeratotic Skin Lesion T here is evidence of hyperkeratotic skin lesions present on the r ight plantar a spect of the 5th mtpj There is a scar from previous wart left heel There is a lesion plantar lateral midfoot on left foot hurts when standing and with pressure. There is no history of drainage or bleeding. Cleansed and sprayed cold spray while removing a small sliver of wood with mild sanguineous drainage. After which the patient voiced relief from palpation pain.. M usculoskeletal: Muscle Strength M uscle strength is 5/5 in regards to dorsiflexion, plantarflexion, inversion, and eversion in bilateral lower extremities.. Foot Structure T he foot structure is noted to be, planus, bilaterally. N eurologic: Mulders sign: b ilateral, negative. Gross sensation G ross sensation is intact to light touch..? V ascular: Dorsalis pedis pulse: b ilateral, 2/4. Posterior tibial pulse: b ilaterally, 2/4. Assessment: * Assessment: 1. S uperficial foreign body, left foot, initial encounter - S90.852A (Primary) ?2. T inea unguium - B35.1 3 . A cquired keratosis [keratoderma] palmaris et plantaris - L85.1 4 . T ype 2 diabetes mellitus with other circulatory complications - E11.59 5 . P ain in right foot - M79.671 6 . P ain in left foot - M79.672 Plan: * Treatment: 2. T inea unguium Notes: Aseptic debridement of elongated thickened nails x 10 using sterile nippers, nails were debrided in length and thickness by 30% utilizing a nail nipper without incident. The patient was educated regarding all treatment options that include topical and oral antifungal treatments. I discussed the options of taking a sample of the nail to confirm diagnosis. Nail clippings were not sent for pathology analysis. The patient was educated why and how the fungal infection evolved in their feet and the patient was given information regarding how to prevent further infection. The patient was told to keep feet dry and change socks. The patient was told to be careful with old shoes and excessive sweating. The patient was educated regarding both OTC and prescription treatments. 3. A cquired keratosis [keratoderma] palmaris et plantaris Notes: Hyperkeratosis x 2: The skin was prepped with isopropyl alcohol. Using a 15-blade scalpel, the hyperkeratotic skin lesions were sharply debrided down to healthy appearing skin. 4. T ype 2 diabetes mellitus with other circulatory complications Notes: The lifetime risk of a foot ulcer for patients with diabetes (type 1 or 2) may be as high as 25 percent. Diabetic foot ulcers are a major cause of morbidity and mortality, accounting for approximately two-thirds of all nontraumatic amputations performed in the [place]. This observation illustrates the importance of prompt treatment of foot ulcers in patients with diabetes. The treatment of diabetic foot ulcers begins with a comprehensive assessment of the ulcer and the patient's overall medical condition. Evidence of underlying neuropathy, bony deformity, and peripheral artery disease should be actively sought. Adequate debridement, proper local wound care, relief of pressure on the ulcer by mechanical off-loading, and control of infection (when present) are important components of therapy. Dressings are selected based upon wound characteristics. 5. O thers Notes: Patient educated on risks and aggravating factors of PVD, including conservative treatment options such as a diet and exercise regimen to aid in slowing progression of vascular disease. Check and protect LE bilateral daily. Call if any changes or concerns. Verruca Plantaris: I educated the patient on verruca. I discussed various treatment plans and answered questions. I explained that verruca treatments often require multiple treatments. Billing Information: * Visit Code: 58601 Office Visit, New Pt., Level 3. * Electronic signature of JS MÁRQUEZ DPM on 05/23/2025 at 12:58 PM DIRECTOR FINANCIAL ANALYSIS Sign off status: Pending * Provider: Lavern MÁRQUEZ Date: 0 03/21/2025 Generated for Paulie pang/Viraj/Brendon on: 07/23/2024 12:58 PM DIRECTOR FINANCIAL ANALYSIS
--- OUTSIDE RECORDS SUMMARY | 2025-04-11 03:30 | XMS_ITS ---
Author Organization [facility] Address [address] [place], [place] [address] Care Team Providers Care Litigation Legal Assistant Name Role Phone TERENCE MÁRQUEZ Unavailable [phone] Mallorie Douglas Unavailable Unavailable Allergies No Known Allergies REASON FOR VISIT foot check Vital Signs Height 71 in 04/11/2025 Height-cm 180.34 cm 04/11/2025 Encounters Encounter Location Date Provider Diagnosis [facility] [place] [address] [place], [place] [id number] 04/11/2025 TERENCE MÁRQUEZ Tinea unguium B35.1 ; Acquired keratosis [keratoderma] palmaris et plantaris L85.1 ; Type 2 diabetes mellitus with other circulatory complications E11.59 ; Pain in right foot M79.671 and Pain in left foot M79.672 Assessments Encounter Date Diagnosis (ICD Code) Assessment Notes Treatment Notes Treatment Clinical Notes Section Notes 04/11/2025 Tinea unguium (ICD-10 - B35.1) Aseptic debridement [...] educated regarding both OTC and prescription treatments. 04/11/2025 Acquired keratosis [keratoderma] palmaris et plantaris (ICD-10 - L85.1) Hyperkeratosis x 2: The skin was prepped with isopropyl alcohol. Using a 15-blade scalpel, the hyperkeratotic skin lesions were sharply debrided down to healthy appearing skin. 04/11/2025 Type 2 diabetes mellitus with other circulatory [...] Dressings are selected based upon wound characteristics. 04/11/2025 Pain in right foot (ICD-10 - M79.671) 04/11/2025 Pain in left foot (ICD-10 - M79.672) Plan Of Treatment Treatment Notes Assessment Notes [...] educated regarding both OTC and prescription treatments. Acquired keratosis [keratode rma] palmaris et plantaris [...] Dressings are selected based upon wound characteristics. Next Appt Details Follow Up: 9 weeks DF, Reas on: Provider Name:TERENCE Fuentes ORDOÑEZ, 06/13/2025 10:20:00 AM, [address] [facility] [address], [place], [place], [id number], History and Physical Notes * HPI (History of Present Illness) Category Sub-Category Detail Notes Category Not es HPI Follow Up Visit Patient presents for follow up visit for a cyst that was removed on the left foot. , Patient states their problem is, improving. Patient presents for follow up visit for a wart/callus on the right foot. , Patient states their problem is, improving., MA: JOSE Examination Category Sub-Category Detail Notes Category Not [...] is a scar from previous wart left heel, fully resolved now There was a lesion plantar lateral midfoot on left foot no pain no longer discolored with mild callus noted now. Musculoskeletal Muscle Strength Muscle strength is 5/5 [...] Robbie HAMM JDOB: [birth year] (70 yo M)Acc No.[id number]:04/11/2025 Patient: Robbie Roque Provider: Lavern MÁRQUEZ :1955 A ge:70 Y S ex:Male Date:04/11/2025 Address:[facility] [address], [id number] Subjective: * Chief Complaints: * F oot check * HPI: H PI: Follow Up Visit P atient presents for follow up visit for a cyst that was removed on the left foot. , Patient states their problem is, improving. P atient presents for follow up visit for a wart/callus on the right foot. , Patient states their problem is, improving., MA: JOSE. * ROS: G eneral / Constitutional: Patient [...] History Verified * Surgical History: Gall Bladder 2009 sinus surgery 2024 Surgical History verified. * Hospitalization/Major Diagno stic Procedure: No Hospitalization Documented. Hospitalization Verified. * Family History: N o Family History documented.. F amily History Verified.. * Social History: Social History Verified. No Social History documented. * Medications: N one * Allergies: N .K.D.A.yesAllergies Verified. Objective: * Vitals: H t: 71 in, Ht-cm: 180.34 cm. * Examination: C onstitutional: Constitutional T he [...] is a scar from previous wart left heel, fully resolved now There was a lesion plantar lateral midfoot on left foot no pain no longer discolored with mild callus noted now. . M usculoskeletal: Muscle Strength M uscle strength [...] b ilaterally, 2/4. Assessment: * Assessment: 1. T inea unguium - B35.1 2 . A cquired keratosis [keratoderma] palmaris et plantaris - L85.1 3 . T ype 2 diabetes mellitus with other circulatory complications - E11.59 4 . P ain in right foot - M79.671 5 . P ain in left foot - M79.672 Plan: * Treatment: 2. A cquired keratosis [keratoderma] palmaris et plantaris Notes: Hyperkeratosis x 2: The skin was prepped with isopropyl alcohol. Using a 15-blade scalpel, the hyperkeratotic skin lesions were sharply debrided down to healthy appearing skin. 3. T ype 2 diabetes mellitus with other [...] Dressings are selected based upon wound characteristics. * Immunizations: Immunization record has been reviewed and updated. * Preventive Medicine: Screenings: F all risk screening F all Risk Assessment: N o falls in the past year. * Follow Up: 9 weeks [facility] Billing Information: * Procedure Codes: * Electronic signature of JS MÁRQUEZ DPM on 05/23/2025 at 12:58 PM CUTTER GRIND TOOL TECHNICIAN Sign off status: Pending * Provider: Lavern MÁRQUEZ Date: Generated for Paulie pang/Viraj/Brendon on: 07/23/2024 12:58 PM CUTTER GRIND TOOL TECHNICIAN
--- OUTSIDE RECORDS SUMMARY | 2025-05-23 12:59 | XMS_ITS | Patient Health Record ---
Author Organization [facility] Address [address] [place], [place] [id number] Care Team Providers Care Film Color Tester Name Role Phone TERENCE MÁRQUEZ Unavailable [phone] Mallorie Douglas Unavailable Unavailable Allergies No Known [...] you drink alcohol? Yes, Socially Vital Signs Height-cm 180.34 cm 04/11/2025 Weight-kg 107.96 kg 03/21/2025 Height 71 in 04/11/2025 Weight 238 lbs 03/21/2025 BMI 33.19 kg/m2 03/21/2025 Encounters Encounter Location Date Provider Diagnosis [facility] [address] [place] [id number] 03/21/2025 TERENCE MÁRQUEZ Tinea unguium B35.1 ; Superficial foreign body, left foot, initial encounter S90.852A ; Acquired keratosis [keratoderma] palmaris et plantaris L85.1 ; Type 2 diabetes mellitus with other circulatory complications E11.59 ; Pain in right foot M79.671 and Pain in left foot M79.672 [facility] [address], [place] [phone] 04/11/2025 TERENCE MÁRQUEZ Tinea unguium B35.1 ; [...] area and expose the foreign body. A pickle water pump operator was then used to remove it [...] Of Treatment Next Appt Details Provider Name:TERENCE ORDOÑEZ, 06/13/2025 10:20:00 AM, [address] [facility], [place], [place], [id number], Insurance Providers Payer Name Payer Address Payer Phone Subscriber Number Group Number Insured Name Patient Relationship to Insured Coverage Start Date Coverage End Date Medicare Part B [facility] [address] [place] [address] [id number] Robbie Medina Self - patient is the insured [facility] [employer] [address] [place], [place] [phone] [id number] Robbie Medina Self - patient is the insured Medical (General) History Medical History History ICD Code Leg/Feet cramps Arthritis Sleep apnea Back Trouble Diabetic Surgical History Surgery Date(Month/Year) Gall Bladder 2010 sinus surgery 2024
--- OUTSIDE RECORDS SUMMARY | 2025-05-23 12:59 | XMS_ITS | Clinical Summary ---
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
--- NOTE | 2025-06-20 09:22 | P.SLEEP_ITS ---
Sleep Study Date of Study: 05/23/25 Ordering Provider: Bhavesh Mullins, CONTRACTS SPECIALIST Interpreting Physician: Talisha De Leon MD Sleep Study Type: CPAP Titration Height: 1.78 m Weight: 107.501 kg Body Mass Index: 34.0 Neck Circumference (inches): 17.5 [place]: 2 Reason for Sleep Study 04/17/2025 polysomnogram with AHI 63, desaturation 81% and central apnea index 44; patient presents for a full night titration The patient has had obstructive sleep apnea since 2001, was being treated with CPAP 13 cm but over a period of time CPAP 13 was not as effective. Central sleep apnea is new. He returns for a full night CPAP titration. Sleep History This history is from prior sleep study on 05/07/2025. The patient is a 70-year-old male that had a sleep study ordered by his ENT for evaluation of sleep apnea. He was initially diagnosed in 2001, has worn CPAP successfully but more recently CPAP 13 has not been as effective. The patient rarely awakens from sleep short of breath. He rarely awakens at night with heartburn, belching or cough. He frequently snores and is occasionally loud enough that others complain. He constantly has trouble sleeping when he has a cold. He rarely wakes up gasping for air throughout the night. He constantly has breathing problems at night observed by himself or others. He occasionally sweats excessively at night. He denies having heart palpitations or irregular heartbeats during the night. He occasionally falls asleep during the day but never while driving. He denies sleep paralysis and cataplexy. He denies having trouble at school or work due to sleepiness. He frequently experiences vivid dreamlike scenes upon awakening falling asleep. He denies feeling afraid of going to sleep. He denies having nightmares. He frequently remembers his dreams. He constantly has thoughts racing through his mind. He rarely feels sad or depressed. He denies having anxiety. He denies having muscular tension. He occasionally notices parts of his body jerk. He occasionally kicks during the night. He denies having crawling and aching feelings in his legs but occasionally has leg pain during the night. He rarely grinds his teeth during sleep and never awakens with morning jaw pain. He is constantly bothered by pain during the day and occasionally awakened by pain during the night. He rarely wakes up feeling stiff in the morning. He denies waking with sore or achy muscles. He frequently wakes up with pain in the neck, spine and other joints. He goes to bed between 10:00 p.m. to midnight every night. He is able to fall asleep within 10-15 minutes. He wakes up throughout the night to adjust his position and is able to fall back asleep within a few minutes. He wakes up at 7:30 a.m. every morning. He typically gets 7-10 hours of sleep per night. He will stay in bed for evaluated below amount of time after waking up in the morning. He currently lives with his . He denies consuming any caffeinated beverages within 2 hours of bedtime. He denies engaging in physical exercise before bedtime. He will read before falling asleep. He denies watching television before asleep. He denies taking naps in afternoon or the evening. He does consume caffeinated Coca-Cola throughout the day. He denies tobacco, alcohol and recreational drug use. 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 Surgical History Surgical History (Updated 06/20/25 @ 15:29 by Talisha De eLon MD) History of cholecystectomy History of appendectomy History of sinus surgery History of left knee surgery Family History Family History (Updated 06/20/25 @ 15:27 by Talisha De Leon MD) Other Cancer Social History Social History (Updated 06/20/25 @ 15:28 by Tailsha De Leon MD) Smoking status: Never smoker Medications Medications: Fluticasone nasal spray Atorvastatin 20 mg a day Metformin a 1000 mg a day Lisinopril 2.5 mg a day Hydrochlorothiazide 12.5 mg a day Vitamin B12 Vitamin D 3 Sleep Procedure A full CPAP polysomnogram using the [employer] SleepPanl multi-channel system recorded the standard physiologic parameters including EEG, EOG, submentalis EMG, anterior tibialis EMG, EKG, body position, nasal and oral airflow using nasal pressure sensor and thermistor. Respiratory parameters of chest and abdominal movements were recorded with Respiratory Inductance Plethysmography belts. Oxygen saturation was recorded by pulse oximetry. Video monitoring was also performed. Sleep stages, periodic limb movements, and EEG arousals were scored in 30 second epochs according to the criteria of the AASM Scoring Manual. The Apnea-Hypopnea Index was calculated using CMS guidelines for definition of hypopnea while scoring respiratory events. The patient was started on CPAP using a medium Respironics ESON II nasal mask and heated humidity. Initial pressure was CPAP 5, titrated in increments of 1 up to CPAP 11. At CPAP 10 cm, the patient spent 83 minutes November, 2020 2 minutes awake, 42.5 minutes in non-REM, 18.5 minutes in REM. Sleep efficiency was 73.5%. The residual apnea-hypopnea index was 8.9, the majority of the events were centrals which are expected to dissipate with regular use of CPAP 10 cm. The lowest saturation was 91%. The optimal pressure CPAP 10 cm. Sleep Architecture The total recording time was 482.4 minutes. The total sleep time was 376.5 minutes. Sleep latency was 2.9 minutes. REM latency was 98.0 minutes. Sleep efficiency was 78.0%. The patient had 55 awakenings for an awakening index of 8.8. Wake after Sleep Onset time was 102.5 minutes. The patient spent 69.0 minutes, 18.3% of total sleep time in Stage N1. The patient spent 231.0 minutes, 61.4% in Stage N2. The patient spent 15.0 minutes, 4.0% in Stage N3. The patient spent 61.5 minutes, 16.3% in Stage REM. Respiratory Analysis The patient had 40 hypopneas, 8 obstructive apneas, 10 mixed apneas, and 115 central apneas for an overall Apnea Hypopnea Index of 27.4 events per hour. The REM Apnea Hypopnea Index was 2.0. The NREM Apnea Hypopnea Index was 32.4. The patient had a Central Apnea Hypopnea Index of 18.3. There were no Respiratory Effort Related Arousals. The Respiratory Disturbance Index is 30.4 events per hour. There was evidence of Jose-Anderson Respirations during the night, resolved at CPAP 10 cm but was present during much of the remainder of the night. Arousals There were 116 total arousals for an arousal index of 18.5. There were 88 spontaneous arousals for an index of 14.0. There were 11 arousals due to respiratory events for an index of 1.8. There were 8 arousals due to periodic limb movements for an index of 1.3. There were 10 arousals due to isolated limb movements for an index of 1.6. Periodic Limb Movements The patient had 44 isolated limb movements with an index of 7.0. The patient had 196 periodic limb movements with index of 31.2. Patient had a total of 240 limb movements with a total limb movement index of 38.2. Oximetry Data The patient had an average oxygen saturation of 93.5% in sleep with a minimum oxygen saturation of 87% and a maximum oxygen saturation of 98%. The patient had 107 oxygen desaturations that were 4% or greater resulting in an Oxygen Desaturation Index of 17.1. The patient spent 3 minutes, 0.6% of total sleep time with an oxygen saturation below 88%. Snoring Profile Snoring was mild during the night, eliminated at the end of the titration. Cardiac Profile The EKG showed normal sinus rhythm. The patient had an average pulse rate of 69.9 bpm with a minimum pulse rate of 60 bpm and a maximum pulse rate of 93 bpm. No arrhythmias noted. EEG Profile No signs of seizure activity seen. 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 At CPAP 10 cm, the patient spent 83 minutes Nov, 2019 2 minutes awake, 42.5 minutes in non-REM, 18.5 minutes in REM. Sleep efficiency was 73.5%. The residual apnea-hypopnea index was 8.9, the majority of the events were centrals which are expected to dissipate with regular use of CPAP 10 cm. The lowest saturation was 91%. Jose-Anderson breathing was present during much of the night. Jose- Anderson breathing was not present at CPAP 10 cm. BMI is 34. Weight management is advised. Clinical data suggests that weight loss of 10% can reduce the severity of respiratory events and snoring and improve AHI by as much as 25%. (2) Restless legs syndrome: Code(s): G25.81 - Restless legs syndrome Status: Acute Assessment and Plan: He meets criteria for restless legs syndrome. The patient had excessive limb movements during the study. His periodic limb movement index was 31.2, all limb movements including periodic and isolated limb movement index is 38.2 however the arousal index was quite low. He occasionally has difficulties with uncomfortable feelings in his legs at night. He has diabetes. Ferritin level is indicated to exclude iron deficiency anemia as a contributing factor. Ferritin should be 75 ng/mL or greater. If ferritin is below this, iron supplementation should be given to achieve ferritin of 75 ng/mL. There are nonpharmacologic methods to treat limb movements including daily exercise, stretching calf muscles before bed, avoiding excessive amounts of caffeine and alcohol, vitamin B supplementation, magnesium lotion massaged into legs before bed, and use of a weighted blanket. Pharmacologic therapy is very effective for restless legs syndrome and limb movements during sleep and may include [id number] voltage-gated calcium channel ligands such as gabapentin which is preferable to dopaminergic agents which can have augmentation. Data The data obtained during this sleep study is adequate for interpretation. Certification This sleep study has been reviewed by a board certified sleep medicine physician.
== END 2025-05-24 07:14 | disposition home or self-care (01) ==
LOC: ANHCSM 11:20
PROVIDERS: PCP Family Medicine; Visit Provider Nurse Practitioner Family
DX: R06.3 Periodic breathing (principal)
CPT/HCPCS: 95811